=== PATIENT | female | born 1995 | race Caucasian/White ===

== ENCOUNTER 2019-11-27 20:27 | Inpatient (IN) | payer OTHER, SELFPAY ==
[2019-11-27 20:38] VITALS: BP 80/62; PULSE 103; RESP 18; TEMP 36.5; O2SAT 100; BMI 37.8
--- NOTE | 2019-11-27 21:09 | ED_ITS ---
HPI - Abdominal Pain General Chief Complaint: Abdominal Pain Stated Complaint: ABD PAIN Time Seen by Provider: 11/27/19 20:59 Source: patient Mode of arrival: ambulatory Limitations: no limitations History of Present Illness HPI narrative: This is a 24-year-old female without significant past medical history who presents with 2 days of abdominal discomfort. Patient states that it started yesterday morning in the periumbilical area and was associated with nausea but denies any vomiting /fever /chills / urinary symptoms/ diarrhea. She states that it is a sharp pain as well as a lot of pressure that is rated at 6/10 and initially was non-radiating but between yesterday morning and today the pain has settled into her suprapubic area and is now radiating into her lower back. She denies any previous history of surgeries or kidney stones and thinks that it is unlikely that she is although her LMP was last month. She states she and her partner consistently use condoms. Related Data Home Medications Medication Instructions Recorded Confirmed No Known Home Meds 11/28/19 11/28/19 Allergies Allergy/AdvReac Type Severity Reaction Status Date / Time No Known Allergies Allergy Verified 11/27/19 20:41 Review of Systems Review of Systems Pertinent positives and negatives as stated in HPI 10 point review of systems otherwise negative. Physical Exam Vital Signs: Vital Signs: Vital Signs Temp Pulse Resp BP Pulse Ox 11/28/19 00:00 109 H 15 116/63 98 11/27/19 23:04 15 11/27/19 21:59 97.7 F 84 18 124/58 L 100 11/27/19 20:38 97.7 F 103 H 18 80/62 L 100 Body Mass Index 37.8 VITAL SIGNS: Reviewed. GENERAL: Well developed, well nourished, in no acute distress. HEAD: Normocephalic/atraumatic, EYES: PERRLA, EOMI intact without pain, no nystagmus/pallor/icterus noted EARS: Ext canals without abnormality, TMs non-bulging and non-erythematous NOSE: Nares patent bilateral OROPHARYNX: no oral lesions noted, posterior pharynx clear and non-erythematous without noted tonsillar enlargement/erythema/exudates NECK: Supple, no adenopathy LUNGS: Normal breath sounds. No adventitious sounds or accessory muscle use. SpO2<100> CARDIOVASCULAR: Regular rate and rhythm without noted murmurs, no JVD or lower extremity edema. ABDOMEN: Soft, non-tender, non-distended with bowel sounds. No rigidity. No guarding. No palpable masses or hernias noted MUSCULOSKELETAL: No tenderness, deformities, or effusions noted on gross inspection. EXTREMITIES: No cyanosis, clubbing or edema. SKIN: Inspection of the skin reveals no rashes, ulcerations, jaundice, pallor, or petechiae. NEUROLOGIC: Alert and oriented x 4. Strength and sensation to light touch were grossly intact x 4. Course Course Course Narrative: This is a 24-year-old female with history and clinical presentation suggestive of possible acute appendicitis, renal colic, ectopic but doubt pyelonephritis or cystitis at this time. Patient received labs, UA, U preg, blood cultures, lactic acid, antibiotics, and IV fluids. Initial vital signs checked and found to be inaccurate. IBW- 54.8kg. Review of all investigations to include imaging is consistent with acute appendicitis. This case was discussed with the general surgeon and patient will be admitted for acute appendicitis. MDM - Abdominal Pain Lab Data Result diagrams: 11/27/19 21:36 11/27/19 21:36 Labs: Lab Results 11/27/19 11/27/19 11/27/19 Range/Units 21:36 21:36 21:36 WBC 16.6 H (4.8-10.8) X10*3/uL RBC 4.17 L (4.20-5.50) X10*6/uL Hgb 12.5 (12.0-16.0) g/dl Hct 36.2 L (37-47) % MCV 86.8 (80-98) fL MCH 30.0 (27.0-33.0) pg MCHC 34.5 (31.0-35.0) g/dl RDW 12.9 (11.0-16.0) % Plt Count 362 (160-400) X10*3/uL MPV 9.2 L (9.4-12.3) fL Immature Gran % (Auto) 0.4 (0.0-0.4) % Neut % (Auto) 77.7 H (45-73) % Lymph % (Auto) 14.0 L (20-40) % [place] % (Auto) 7.1 (2-11) % Eos % (Auto) 0.4 (0-4) % Baso % (Auto) 0.4 (0-2) % Lymph # (Auto) 2.3 (1.2-4.9) X10*3/uL [place] # (Auto) 1.2 (0.1-1.2) X10*3/uL Eos # (Auto) 0.1 (0.0-0.4) X10*3/uL Baso # (Auto) 0.1 (0.0-0.2) X10*3/uL Abs Immat Gran (auto) 0.07 H (0.00-0.03) X10*3/uL Absolute Neuts (auto) 12.9 H (2.0-8.3) X10*3/uL Absolute Nucleated RBC 0.000 (0.0-0.012) X10*3/uL Nucleated RBC % (auto) 0.0 (0.0-0.2) /100WBC Sodium 139 (135-145) mmol/L Potassium 3.9 (3.3-5.1) mmol/l Chloride 103 (96-108) mmol/L Carbon Dioxide 23 (22-29) mmol/L Anion Gap 17 (12-20) BUN 8 L (9-16) mg/dL Creatinine 0.82 (0.5-1.4) mg/dL Estim Creat Clear Calc 120.4 Estimated GFR > 60 Random Glucose 113 (60-115) mg/dL Lactic Acid (0.5-2.0) mmol/L Calcium 9.1 (8.4-10.2) mg/dL Total Bilirubin 0.6 (0.0-1.0) mg/dL AST 18 (5-31) U/L ALT 18 (0-31) U/L Alkaline Phosphatase 69 (39-117) U/L Total Protein 7.9 (6.5-8.0) g/dL Albumin 4.5 (3.5-5.0) g/dL Urine Color YELLOW Urine Appearance CLEAR Urine pH 6.0 (5.0-8.0) Ur Specific [place] 1.025 (1.005-1.025) Urine Protein NEG (NEG-TRACE) MG/DL Urine Glucose (UA) NEG (NEG) MG/DL Urine Ketones 15 (NEG) MG/DL Urine Blood 2+ H (NEG) Urine Nitrite NEG (NEG) Ur Leukocyte Esterase NEG (NEG) Urine RBC 0-2 (0) /HPF Urine WBC 0 (0-4) /HPF Ur Squamous Epith Cells 1+ /LPF Urine Bacteria TRACE /LPF Urine Test NEGATIVE (NEGATIVE) 11/27/19 Range/Units 21:36 WBC (4.8-10.8) X10*3/uL RBC (4.20-5.50) X10*6/uL Hgb (12.0-16.0) g/dl Hct (37-47) % MCV (80-98) fL MCH (27.0-33.0) pg MCHC (31.0-35.0) g/dl RDW (11.0-16.0) % Plt Count (160-400) X10*3/uL MPV (9.4-12.3) fL Immature Gran % (Auto) (0.0-0.4) % Neut % (Auto) (45-73) % Lymph % (Auto) (20-40) % [place] % (Auto) (2-11) % Eos % (Auto) (0-4) % Baso % (Auto) (0-2) % Lymph # (Auto) (1.2-4.9) X10*3/uL [place] # (Auto) (0.1-1.2) X10*3/uL Eos # (Auto) (0.0-0.4) X10*3/uL Baso # (Auto) (0.0-0.2) X10*3/uL Abs Immat Gran (auto) (0.00-0.03) X10*3/uL Absolute Neuts (auto) (2.0-8.3) X10*3/uL Absolute Nucleated RBC (0.0-0.012) X10*3/uL Nucleated RBC % (auto) (0.0-0.2) /100WBC Sodium (135-145) mmol/L Potassium (3.3-5.1) mmol/l Chloride (96-108) mmol/L Carbon Dioxide (22-29) mmol/L Anion Gap (12-20) BUN (9-16) mg/dL Creatinine (0.5-1.4) mg/dL Estim Creat Clear Calc Estimated GFR Random Glucose (60-115) mg/dL Lactic Acid 1.1 (0.5-2.0) mmol/L Calcium (8.4-10.2) mg/dL Total Bilirubin (0.0-1.0) mg/dL AST (5-31) U/L ALT (0-31) U/L Alkaline Phosphatase (39-117) U/L Total Protein (6.5-8.0) g/dL Albumin (3.5-5.0) g/dL Urine Color Urine Appearance Urine pH (5.0-8.0) Ur Specific [place] (1.005-1.025) Urine Protein (NEG-TRACE) MG/DL Urine Glucose (UA) (NEG) MG/DL Urine Ketones (NEG) MG/DL Urine Blood (NEG) Urine Nitrite (NEG) Ur Leukocyte Esterase (NEG) Urine RBC (0) /HPF Urine WBC (0-4) /HPF Ur Squamous Epith Cells /LPF Urine Bacteria /LPF Urine Test (NEGATIVE) Discharge Plan Discharge Clinical Impression: Acute appendicitis Qualifiers: Acute appendicitis type: unspecified acute appendicitis type Qualified Code(s): K35.80 - Unspecified acute appendicitis Patient Disposition: Admitted As Inpatient [facility] Past Medical History Source: nursing notes reviewed Medical History No known health problems Social History Social History Alcohol intake: unknown Smoking Status: Unknown if ever smoked Use of substances other than those prescribed or required for medical reasons: Unknown Advance Directives: No Advance Directives Information Provided: Yes
[2019-11-27 21:45] LABS: MANUAL DIFF FLAG NO
[2019-11-27 21:46] LABS: Basophils Absolute Auto 0.1 X10*3/uL (0.0-0.2); Basophils Percent Auto 0.4 % (0-2); Eosinophils Absolute Auto 0.1 X10*3/uL (0.0-0.4); Eosinophils Percent Auto 0.4 % (0-4); Hematocrit 36.2 % (37-47); Hemoglobin 12.5 g/dl (12.0-16.0); Imm Gran Abs Auto 0.07 X10*3/uL (0.00-0.03); Imm Gran Pct Auto 0.4 % (0.0-0.4); Lymphocytes Absolute Auto 2.3 X10*3/uL (1.2-4.9); Mean Corpuscular HGB Conc 34.5 g/dl (31.0-35.0); Mean Corpuscular Volume 86.8 fL (80-98); Mean Platelet Volume 9.2 fL (9.4-12.3); Monocytes Absolute Auto 1.2 X10*3/uL (0.1-1.2); Monocytes Percent Auto 7.1 % (2-11); Neutrophils Absolute Auto 12.9 X10*3/uL (2.0-8.3); Neutrophils Percent Auto 77.7 % (45-73); Platelet Count 362 X10*3/uL (160-400); Red Blood Count 4.17 X10*6/uL (4.20-5.50); Red Cell Distribution Width 12.9 % (11.0-16.0); White Blood Count 16.6 X10*3/uL (4.8-10.8)
[2019-11-27 21:48] LABS: Glucose Urine UA NEG (NEG); Leukocyte Esterase Urine NEG (NEG); Nitrite Urine NEG (NEG); Specific Gravity - Urine 1.025 (1.005-1.025); Urine Blood 2+ (NEG); Urine Ketones 15 MG/DL (NEG); Urine Protein NEG (NEG-TRACE)
[2019-11-27 21:49] LABS: Appearance Urine CLEAR; Color Urine YELLOW; UPreg QC Valid YES
[2019-11-27 21:50] LABS: Urine Pregnancy NEGATIVE (NEGATIVE)
[2019-11-27 21:54] LABS: Bacteria Urine TRACE /LPF; RBC Urine 0-2 /HPF (0); Squamous Epithelial Cell Urine 1+ /LPF; WBC Urine 0 /HPF (0-4)
[2019-11-27 21:59] VITALS: BP 124/58; PULSE 84; RESP 18; TEMP 36.5; O2SAT 100
[2019-11-27 22:02] LABS: Lactic Acid 1.1 mmol/L (0.5-2.0)
--- NOTE | 2019-11-27 22:04 | CT_ITS ---
EXAMINATION: CT ABDOMEN AND PELVIS WITH CONTRAST CLINICAL INFORMATION: Lower abdominal pain. COMPARISON: None TECHNIQUE: Multidetector volumetric images were obtained from the superior aspect of the liver through the pubic symphysis following administration 85 mL of Omnipaque 350 intravenous contrast. Sagittal and coronal reformatted images were obtained on the technologist's workstation. Oral Contrast: No. This CT examination was performed using dose optimization techniques as appropriate, variously including the following: *Automated exposure control. *Adjustment of mA and/or kV according to patient size (this includes techniques or standardized protocols for targeted exams where dose is matched to indication/reason for exam; i.e. extremities or head). *Use of iterative reconstruction technique. DLP: 772 mGy-cm FINDINGS: LUNG BASES: The visualized lung bases are unremarkable. LIVER, GALLBLADDER, AND BILIARY TREE: The liver is normal in size, shape, and attenuation. No focal hepatic lesion or biliary ductal dilatation is present. The gallbladder is unremarkable with no evidence of radiopaque gallstones, gallbladder wall thickening, or obvious pericholecystic inflammatory changes. PANCREAS: Unremarkable. SPLEEN: Unremarkable. ADRENAL GLANDS: Unremarkable. KIDNEYS AND URETERS: The kidneys are normal in size, shape, and attenuation. No hydronephrosis, hydroureter, or calculi seen. No perinephric stranding. BLADDER: Unremarkable. GASTROINTESTINAL TRACT: A 0.7 cm appendicolith is noted in the mid appendix. The appendix distal to the appendicolith is thickened with a maximum diameter of 0.9 cm. There is a hyperenhancement of the appendiceal wall. Periappendiceal fat stranding is noted. The appendix arises from the medial margin of the cecum and extends into the central abdomen (series 5 images 50 through 64 of 134).There is no evidence of focal appendiceal perforation or abscess collection. The stranding extends along the anterior aspect of the spine in the retroperitoneum at the level of the aortic bifurcation There is likely mild reactive thickening of the wall of the adjacent small bowel. Remainder of the small bowel, colon and stomach are unremarkable. PERITONEAL SPACE: [id number] amount of free fluid is noted in the pelvis. No free intraperitoneal air. ABDOMINAL WALL: No significant hernia is appreciated. LYMPH NODES: No pathologically enlarged lymph nodes. VASCULAR: Unremarkable. PELVIC VISCERA: Unremarkable CT appearance of the uterus and left ovary. Peripherally enhancing hypodense lesion is noted in the right ovary measuring 2.3 cm likely representing a collapsing corpus luteal or hemorrhagic cyst. Mild fat stranding on the anterior aspect of the uterus is reactive. OSSEOUS STRUCTURES: No acute or suspicious osseous lesions. A small sclerotic density in the left femoral head represents a bone island. IMPRESSION: Findings consistent with acute appendicitis as detailed above with a 0.7 cm appendicolith. No evidence of focal appendiceal perforation or abscess collection. Mild reactive wall thickening of the adjacent small bowel loop. [id number] volume of free fluid in the pelvis. No free intraperitoneal air. This critical result was discussed with Dr. Tori Diaz at 11:17 PM on 11/27/2019 and it was ascertained that the content and urgency of the report was understood at the time of direct communication.
[2019-11-27 22:10] LABS: Alanine Aminotransferase 18 U/L (0-31); Albumin Level 4.5 g/dL (3.5-5.0); Alkaline Phosphatase 69 U/L (39-117); Anion Gap 17 (12-20); Aspartate Amino Transferase 18 U/L (5-31); Bilirubin Total 0.6 mg/dL (0.0-1.0); Blood Urea Nitrogen 8 mg/dL (9-16); Calcium 9.1 mg/dL (8.4-10.2); Carbon Dioxide 23 mmol/L (22-29); Chloride 103 mmol/L (96-108); Creatinine Clr Calc Pharmacy 120.4; Estimated Glomerular Filt Rate > 60; Glucose Random 113 mg/dL (60-115); Potassium 3.9 mmol/l (3.3-5.1); Sodium 139 mmol/L (135-145); Total Protein 7.9 g/dL (6.5-8.0)
[2019-11-27] MEDS: 0.9 % Sodium Chloride 1,000 ML 999 ML IVCONT (22:11)
[2019-11-27] MEDS: iohexoL 350 MG/ML 100 ML INFUS..BTL IV (22:59)
[2019-11-27 23:04] VITALS: RESP 15
[2019-11-27] MEDS: fentaNYL citrate/PF 100 MCG/2 ML VIAL 12.5 MCG IVPUSH (23:04)
[2019-11-28] VITALS (15 sets, daily range): BP systolic 113–132; BP diastolic 54–76; PULSE 68–118; RESP 15–19; TEMP 36.4–39.3; O2SAT 95–99; BMI 36.1
[2019-11-28] MEDS: Piperacillin Sodium/Tazobactam 3.375 GM in 0.9 % Sodium Chloride 50 ML IV ×2 (00:07→05:28)
[2019-11-28] MEDS: fentaNYL citrate/PF 100 MCG/2 ML VIAL 12.5 MCG IVPUSH (01:53)
[2019-11-28 02:34] LABS: SARS COV2 PCR INHOUSE NEGATIVE (Negative)
[2019-11-28] MEDS: 0.9 % Sodium Chloride 1,000 ML 125 ML IVCONT ×3 (03:44→22:10)
[2019-11-28] MEDS: Morphine Sulfate 4 MG/ML CARTRIDGE IVPUSH ×3 (04:28→11:04)
--- NOTE | 2019-11-28 08:52 | MHC.SHP ---
Pre-Procedural Eval Section A The patient is an INPATIENT: Yes The History & Physical has been completed within 30 days and I have reviewed it.: Yes Section B Chief Complaint: ABD PAIN/ACUTE APPENDICITIS Allergies: Allergies Allergy/AdvReac Type Severity Reaction Status Date / Time No Known Allergies Allergy Verified 11/27/19 20:41 Plan Patient has been examined and remains a candidate for the planned procedure
--- NOTE | 2019-11-28 11:39 | MHC.CM.PN ---
TELEHEALTH NURSE EDUCATOR COMPLETED WITH PT WHO REPORTS SHE LIVES AT HOME WITH HER S/O AND IS FULLY INDEPENDENT WITH CARE AND MOBILITY. PT HAS NO SERVICES AND NO DME. PT REPORTS SHE DOES NOT HAVE A PCP OR A HCP. PT COMPLETED A HCP TODAY NAMING HER S/O, DOUGLAS HENRY([phone]) HER PRIMARY AND HER MOTHER, EDWINA COLON ([phone]), HER SECONDARY, AGENTS. CURRENT DC PLAN IS HOME WITH NO SERVICES PT WILL SELF ARRANGE TRANSPORTATION
--- NOTE | 2019-11-28 12:04 | P.HPGS_ITS ---
History of Present Illness History of Present Illness Chief complaint: ABD PAIN/ACUTE APPENDICITIS Narrative: This is a 24-year-old previously healthy female who reports a 2 day history of abdominal pain that was initially periumbilical and then localized to the suprapubic and right lower quadrant yesterday morning. Patient reports when the pain began 2 days ago in the morning it was a 5/10 on a pain scale. The pain progressed over the course of the next day and half to a 9/10 which brought her to the emergency department last evening. Patient's pain is now somewhere between 8 9/10. She had associated nausea but no vomiting. She reports trying Aleve for pain control with slight improvement. There were no exacerbating factors and the only alleviating factor was use of Aleve. Last meal was yesterday around 2 in the afternoon. Last bowel movement was a liquid stool this morning. She reports she had smaller stools over the past couple of days and then reports having episodes of loose stool since last night. She denies recent vomiting. She denies previous episodes of pain of this sort before. Patient was seen in the emergency department and evaluated and found have white blood cell count of 16.6. She had a CT scan of the abdomen and pelvis which showed an appendicolith that was 0.7 cm in the midportion of the appendix with the distal appendix being inflamed dilated and periappendiceal stranding seen. This was consistent with appendicitis. patient was admitted this morning with a diagnosis of acute appendicitis. Review of Systems Review of Systems: Yes all other systems are reviewed and are negative Constitutional: Constitutional: Reports anorexia, Reports difficulty sleeping, Reports fatigue, Denies frequent falls, Denies headache(s), Denies increased appetite and Reports poor appetite Eyes: Eyes: Reports no additional eye complaints and Denies blurry vision ENT: Reports Normal hearing present, Denies bleeding gums, Denies change in voice, Denies dizziness, Denies headache(s), Denies lip swelling, Denies throat swelling and Denies tongue swelling Cardiovascular: Cardiovascular: Reports no additional cardiovascular complaints, Denies diaphoresis, Denies syncope, Denies rapid heart rate, Denies pedal edema, Denies dyspnea, Denies dyspnea on exertion, Denies orthopnea and Denies paroxysmal nocturnal dyspnea Respiratory: Respiratory: Denies chest congestion, Denies cough, Denies dyspnea, Denies dyspnea on exertion and Denies wheezing Gastrointestinal: Gastrointestinal: Reports abdominal pain ( Suprapubic and right lower quadrant), Reports change in bowel habits ( diarrhea), Reports change in stool character, Denies heartburn, Reports loose stools, Reports nausea and Denies vomiting Genitourinary: Genitourinary: Reports no additional female genitourinary complaints, Denies abnormal menses, Denies urinary frequency, Denies difficulty voiding, Denies hot flashes and Denies nipple discharge Musculoskeletal: Musculoskeletal: Denies abnormal gait Integumentary/Breasts: Skin/Breast: Denies breast swelling, Denies swelling, Denies breast pain, Denies breast mass and Denies nipple discharge Neurologic: Reports Normal hearing present, Denies Neuro-related abnormal movements, Denies Abnormal speech present, Denies abnormal gait, Denies confusion, Denies dizziness, Denies syncope, Denies frequent falls and Denies headache(s) Psychiatric: Psychiatric: Denies abnormal sleep pattern, Denies confusion, Denies depression and Denies panic attacks Endocrine: Endocrine: Reports fatigue, Denies flushing, Denies heat intolerance, Denies polyphagia and Denies polydipsia Hematologic/Lymphatic: Hematologic/Lymphatic: Denies easy bleeding, Denies easy bruising and Denies lymphadenopathy Allergic/Immunologic: Allergic/Immunologic: Denies lip swelling, Denies throat swelling, Denies tongue swelling and Denies wheezing PMFSH Past Medical History Medical History No known health problems Family History Family History Mother History of ovarian cancer Father Type 2 diabetes mellitus Paternal Grandmother Lung cancer Brother No problems noted. Brother No problems noted. Brother No problems noted. Surgical History Surgical History (Updated 11/28/19 @ 12:10 by Dafne Lopez MD) No pertinent past surgical history Social History Social History (Updated 11/28/19 @ 12:13 by Dafne Lopez MD) Household Members: Spouse Housing: House Do you presently have visiting nurse or other home services: No Alcohol intake: never Smoking Status: Never smoker Second Hand Smoke Exposure: No Use of substances other than those prescribed or required for medical reasons: No Have you been hit, kicked, punched, or otherwise hurt by someone within the past year? 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 Meds Allergies Allergy/AdvReac Type Severity Reaction Status Date / Time No Known Allergies Allergy Verified 11/28/19 12:13 Home Medications Medication Instructions Recorded Confirmed Type No Known Home Meds 11/28/19 11/28/19 History Physical Exam Vital Signs: Vital Signs: Vital Signs Temp Pulse Resp BP Pulse Ox 11/28/19 07:41 100.9 F H 110 H 18 120/54 L 98 11/28/19 03:38 98.4 F 114 H 16 113/66 99 11/28/19 01:53 15 11/28/19 00:00 109 H 15 116/63 98 11/27/19 23:04 15 11/27/19 21:59 97.7 F 84 18 124/58 L 100 11/27/19 20:38 97.7 F 103 H 18 80/62 L 100 Body Mass Index 36.1 Const: General: cooperative, healthy appearing, comfortable and no acute distress; No confusion Orientation/consciousness: patient oriented x3 and No confusion HENMT: Head: Yes normal to inspection, Yes normocephalic and Yes atraumatic Eyes: General: appearance normal, both eyes and all related structures Sclerae: sclerae normal EOM: EOMs intact bilaterally Neck: Neck: Yes normal visual inspection, Yes full ROM and Yes no lymphadenopathy Chest: Chest palpation & inspection: normal inspection of the chest Resp: Effort & Inspection: normal respiratory effort, able to speak in complete sentences and abnormal respiratory pattern Auscultation: clear to auscultation bilaterally Cardio: Rate: regular rate Heart sounds: S1 normal heart sound present, S2 normal heart sound present, no gallops, no murmurs, no rubs and normal S1 and S2 GI: Inspection: No Abdominal wall edema, No distended, No incision, No Abdominal panniculus present and Yes obesity Palpation (GI): Tenderness to palpation present (GI) in the RLQ and suprapubicly Percussion: Yes normal to percussion Rectal Exam - Female: deferred Skin: General skin exam: no rashes or lesions noted Neuro: General: patient oriented x3 and No confusion Cranial nerves: Yes CN's II-XII intact bilaterally and Yes Normal hearing present Speech: No A bnormal speech present Motor exam (neuro): 5/5 motor strength present throughout Extrem: General: Yes normal to inspection, Yes full ROM, Yes no clubbing, cyanosis or edema, Yes no pedal edema and Yes no calf tenderness Psych: Appearance: grossly normal Mental Status: mental status grossly normal Speech and movement: Normal speech and movement present Affect: normal affect Attitude: cooperative Thought process: Normal thought process present Thought content: Normal thought content present Insight: Good insight present (Psych) Judgement: Good judgement present (Psych) Results Results Labs: Short CBC 11/27/19 Range/Units 21:36 WBC 16.6 H (4.8-10.8) X10*3/uL Hgb 12.5 (12.0-16.0) g/dl Hct 36.2 L (37-47) % Plt Count 362 (160-400) X10*3/uL BMP 11/27/19 21:36 Sodium 139 Potassium 3.9 Chloride 103 Carbon Dioxide 23 BUN 8 L Creatinine 0.82 Calcium 9.1 Liver Function 11/27/19 Range/Units 21:36 Total Bilirubin 0.6 (0.0-1.0) mg/dL AST 18 (5-31) U/L ALT 18 (0-31) U/L Alkaline Phosphatase 69 (39-117) U/L Albumin 4.5 (3.5-5.0) g/dL Urine 11/27/19 Range/Units 21:36 Urine Color YELLOW Urine Appearance CLEAR Urine pH 6.0 (5.0-8.0) Ur Specific [place] 1.025 (1.005-1.025) Urine Protein NEG (NEG-TRACE) MG/DL Urine Glucose (UA) NEG (NEG) MG/DL Urine Test NEGATIVE (NEGATIVE) CT scan - chest: report reviewed ( findings in HPI) Assessment and Plan (1) Acute appendicitis: Qualifiers: Acute appendicitis type: unspecified acute appendicitis type Qualified Code(s): K35.80 - Unspecified acute appendicitis Status: Acute this is a 24-year-old lady with acute appendicitis by history physical exam laboratory values and radiologic studies. She will be taken to the operating room for laparoscopic possible open appendectomy. Risks benefits and alternatives were discussed with the patient and she agrees to proceed.
--- NOTE | 2019-11-28 12:25 | HO.ANESPROP2 ---
[facility] Past Medical History Medical History No known health problems Family History Family History Mother History of ovarian cancer Father Type 2 diabetes mellitus Paternal Grandmother Lung cancer Brother No problems noted. Brother No problems noted. Brother No problems noted. Surgical History Surgical History (Updated 11/28/19 @ 12:10 by Dafne Lopez MD) No pertinent past surgical history Social History Social History (Updated 11/28/19 @ 12:13 by Dafne Lopez MD) Household Members: Spouse Housing: House Do you presently have visiting nurse or other home services: No Alcohol intake: never Smoking Status: Never smoker Second Hand Smoke Exposure: No Use of substances other than those prescribed or required for medical reasons: No Have you been hit, kicked, punched, or otherwise hurt by someone within the past year? 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 Meds Allergies Allergy/AdvReac Type Severity Reaction Status Date / Time No Known Allergies Allergy Verified 11/28/19 12:13 Home Medications Medication Instructions Recorded Confirmed Type No Known Home Meds 11/28/19 11/28/19 History Exam Exam Date and Time: November 28, 2019 1225 Height,Weight and Vital Signs: Height 5 ft 4 in Weight 95.4 kg Last Vital Signs Temp 100.9 F H 11/28/19 07:41 Pulse 110 H 11/28/19 07:41 Resp 18 11/28/19 07:41 BP 120/54 L 11/28/19 07:41 Pulse Ox 98 11/28/19 07:41 Pertinent Lab Results Pertinent Lab Results: Laboratory Tests 11/27/19 11/27/19 11/27/19 21:36 21:36 21:36 WBC 16.6 H RBC 4.17 L Hgb 12.5 Hct 36.2 L MCV 86.8 MCH 30.0 MCHC 34.5 RDW 12.9 Plt Count 362 MPV 9.2 L Immature Gran % (Auto) 0.4 Neut % (Auto) 77.7 H Lymph % (Auto) 14.0 L [place] % (Auto) 7.1 Eos % (Auto) 0.4 Baso % (Auto) 0.4 Lymph # (Auto) 2.3 [place] # (Auto) 1.2 Eos # (Auto) 0.1 Baso # (Auto) 0.1 Abs Immat Gran (auto) 0.07 H Absolute Neuts (auto) 12.9 H Absolute Nucleated RBC 0.000 Nucleated RBC % (auto) 0.0 Sodium 139 Potassium 3.9 Chloride 103 Carbon Dioxide 23 Anion Gap 17 BUN 8 L Creatinine 0.82 Estim Creat Clear Calc 120.4 Estimated GFR > 60 Random Glucose 113 Lactic Acid Calcium 9.1 Total Bilirubin 0.6 AST 18 ALT 18 Alkaline Phosphatase 69 Total Protein 7.9 Albumin 4.5 Urine Color YELLOW Urine Appearance CLEAR Urine pH 6.0 Ur Specific [place] 1.025 Urine Protein NEG Urine Glucose (UA) NEG Urine Ketones 15 Urine Blood 2+ H Urine Nitrite NEG Ur Leukocyte Esterase NEG Urine RBC 0-2 Urine WBC 0 Ur Squamous Epith Cells 1+ Urine Bacteria TRACE Urine Test NEGATIVE Coronavirus (PCR) 11/27/19 11/28/19 21:36 01:30 WBC RBC Hgb Hct MCV MCH MCHC RDW Plt Count MPV Immature Gran % (Auto) Neut % (Auto) Lymph % (Auto) [place] % (Auto) Eos % (Auto) Baso % (Auto) Lymph # (Auto) [place] # (Auto) Eos # (Auto) Baso # (Auto) Abs Immat Gran (auto) Absolute Neuts (auto) Absolute Nucleated RBC Nucleated RBC % (auto) Sodium Potassium Chloride Carbon Dioxide Anion Gap BUN Creatinine Estim Creat Clear Calc Estimated GFR Random Glucose Lactic Acid 1.1 Calcium Total Bilirubin AST ALT Alkaline Phosphatase Total Protein Albumin Urine Color Urine Appearance Urine pH Ur Specific [place] Urine Protein Urine Glucose (UA) Urine Ketones Urine Blood Urine Nitrite Ur Leukocyte Esterase Urine RBC Urine WBC Ur Squamous Epith Cells Urine Bacteria Urine Test Coronavirus (PCR) NEGATIVE Airway Mallampati Class: II TM Dist: >3cm Neck ROM: Full Loose/Missing/Broken Teeth: No Heart: RRR Lungs: CTA Assessment and Plan Assessment Anesthesia Assessment: Anesthesia Plan Discussed and Chart Reviewed Final Anesthetic Review NPO: Yes ASA Class: I Final Preanesthetic Review: No Changes in Pt Med Stat, Meds/Allgs Chart Reviewed, Consent Obtained/Reviewed and Anes Risks/Benef Reviewed Patient Risk: Low Procedure Risk: Intermediate Anesthetic Plan Anesthetic Plan: GA Disposition: Standard PACU
[2019-11-28] MEDS: Acetaminophen 325 MG TABLET 650 MG PO (13:05)
--- NOTE | 2019-11-28 14:31 | P.BOP_ITS ---
Brief Operative Note Date of procedure: 11/28/19 Pre-op diagnosis: Acute appendicitis Post-op diagnosis: same Procedure: laparoscopic appendectomy Surgeon: Dafne Lopez MD Anesthesia: GETA Funeral Greeter: Blanca Chacon Estimated blood loss (mL): 10 Pathology: other ( appendix) Condition: stable Disposition: PACU
--- NOTE | 2019-11-28 14:32 | W.PM.OPN ---
Operative Note Operative Note Narrative: Patient was brought into the operating room, placed on operating room table in a supine position. General anesthesia was induced. The patient received 2 g of IV cefotetan preoperatively. Normal DVT prophylaxis was instituted. Safety time-out was performed. The abdomen was prepped and draped in normal sterile fashion using ChloraPrep. Next a mixture of 1% lidocaine with epinephrine 0.25% Marcaine plain was used to anesthetize the planned incision site in the infraumbilical position. A number 11 scalpel used to make a 2 cm infraumbilical transverse surgical incision through which the subcutaneous tissues were dissected down to the level of the fascia. The fascia was grasped between 2 Nathalia clamps and entered for about 1 cm. A 11. Scalpel used to cut the fascia. A 0 Vicryl suture was placed on either side of the opened fascia. A finger was used to bluntly gain access to the intra-abdominal cavity. A 12 mm Ordoñez trocar was introduced into the abdomen and secured to the abdominal wall using sutures on the fascia. The abdominal cavity was insufflated to 15 mm of mercury. A 5 mm 30 degree laparoscopic was introduced abdomen and used to survey the abdominal cavity which was relatively normal. Two additional 5 mm ports were placed under direct vision, 1 in the suprapubic region and 1 in the left lower quadrant under direct vision. The patient was placed in Trendelenburg positioning with the left side tilted down. We visualized the cecum in the right lower quadrant as well as the appendix which was retrocecal and in the pelvis anterior to the uterine fundus. There was fibrinous exudate and cloudy serous fluid in the pelvis. We grasped the appendix and dissected it free from the surrounding tissues. We used the LigaSure device to dissect the mesoappendix down at the base of the appendix. We then used a 45 mm sheppard load stapler to staple across the base of the appendix. We placed the appendix in an Endo-Catch bag and removed from the abdomen. We evaluated staple line at the cecum and it was in good condition there was evidence of any bleeding. We irrigated the pelvis until the effluent was clear and suctioned all of the fluid from the pelvis. There was no injury to any of the viscera. We then removed the 5 mm ports from the suprapubic region and the left lower quadrant under direct vision. There was no bleeding from these port sites. We desufflated the abdomen under direct vision and removed the last port and laparoscope. We reapproximated the fascial defect at the umbilicus using a [id number] 0 Vicryl suture and tied the original fascial sutures over that closure. There was no residual fascial defect. We reapproximated all skin incisions with a 4 0 Monocryl subcuticular stitch. We cleaned and dried the skin and applied Dermabond skin glue to all skin incisions. All counts were correct at the end of the case there were no complications. The patient was awakened in stable condition prior to extubation and transferred to recovery room.
[2019-11-28] MEDS: Ketorolac Tromethamine 30 MG/ML VIAL IVPUSH (16:02)
[2019-11-28] MEDS: oxyCODONE HCl Immed Release 5 MG TABLET PO (16:14)
[2019-11-28] MEDS: 0.9 % Sodium Chloride Flush 3 ML SYRINGE IVFLUSH ×2 (17:20→23:49)
[2019-11-29] MEDS: oxyCODONE HCl Immed Release 5 MG TABLET PO (03:54)
[2019-11-29 04:00] VITALS: BP 111/65; PULSE 87; RESP 18; TEMP 35.9; O2SAT 100
[2019-11-29 06:00] VITALS: TEMP 36.5
[2019-11-29] MEDS: 0.9 % Sodium Chloride 1,000 ML 125 ML IVCONT (06:15)
[2019-11-29 08:00] VITALS: BP 118/66; PULSE 83; RESP 18; TEMP 36.6; O2SAT 99
[2019-11-29] MEDS: 0.9 % Sodium Chloride Flush 3 ML SYRINGE IVFLUSH (09:07)
--- NOTE | 2019-11-29 09:28 | MHC.CM.PN ---
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
--- NOTE | 2019-11-29 09:33 | PM.PNGS ---
Subjective Subjective Interval history: pod 1 s/p lap appendectomy feeling much better. No nausea or vomiting. Tolerating regular diet. Vital signs are normal Physical Exam Vital Signs: Vital Signs: Vital Signs Temp Pulse Resp BP Pulse Ox 11/29/19 08:00 97.9 F 83 18 118/66 99 11/29/19 06:00 97.7 F 11/29/19 04:00 96.6 F L 87 18 111/65 100 11/28/19 23:24 97.5 F 68 16 116/60 97 11/28/19 19:03 98 F 86 18 114/61 99 11/28/19 16:44 98.3 F 101 H 18 131/65 98 11/28/19 16:32 98.7 F 104 H 18 118/66 98 11/28/19 16:20 106 H 18 119/76 97 11/28/19 16:04 107 H 18 125/68 97 11/28/19 15:59 108 H 18 118/68 97 11/28/19 15:53 107 H 18 120/61 96 11/28/19 15:48 98.7 F 108 H 18 122/62 95 11/28/19 14:19 100.8 F H 11/28/19 12:00 102.7 F H 118 H 19 132/60 98 Body Mass Index 36.1 Const: General: cooperative, healthy appearing, comfortable and no acute distress Orientation/consciousness: patient oriented x3 GI: Other: obese, soft, mild appropriate incisional tenderess. Dermabond in place Neuro: General: patient oriented x3 Extrem: General: Yes no pedal edema and Yes no calf tenderness Progress Note: A&P Assessment and plan (1) S/P laparoscopic appendectomy: Status: Acute Assessment and Plan: pod 1 s/p lap appendectomy doing well. Will d/c home today Fall Risk Details Current Medications: Current Medications Generic Name Dose Route Start Last Admin Trade Name Freq PRN Reason Stop Dose Admin Acetaminophen 650 mg 11/28/19 01:36 11/28/19 13:05 Acetaminophen 325 Mg Tablet PO 650 mg Q6H PRN Administration FEVER/MILD PAIN Diphenhydramine HCl 25 mg 11/28/19 01:47 Diphenhydramine Hcl 25 Mg Tablet PO Q4H PRN ALLERGIC REACTION Diphenhydramine HCl 25 mg 11/28/19 16:45 Diphenhydramine Hcl 25 Mg Tablet PO Q4H PRN Itching Sodium Chloride 1,000 mls @ 125 mls/hr 11/28/19 02:15 11/29/19 06:15 Ns IVCONT 125 mls/hr .Q8H MISAEL Administration Morphine Sulfate 2 mg 11/28/19 01:32 Morphine Sulfate 2 Mg/Ml Cartridge IVPUSH Q3H PRN PAIN 3-6 Morphine Sulfate 4 mg 11/28/19 01:34 11/28/19 11:04 Morphine Sulfate 4 Mg/Ml Cartridge IVPUSH 4 mg Q3H PRN Administration PAIN 7-10 Ondansetron HCl 4 mg 11/28/19 01:35 Ondansetron Hcl 4 Mg/2 Ml Vial IVPUSH Q4H PRN Nausea Oxycodone HCl 5 mg 11/28/19 16:45 11/29/19 03:54 Oxycodone Hcl Immed Release 5 Mg Tablet PO 5 mg Q3H PRN Administration Pain, Moderate (Pain Scale 4-6 Oxycodone HCl 10 mg 11/28/19 16:45 Oxycodone Hcl Immed Release 5 Mg Tablet PO Q3H PRN Pain, Severe (Pain Scale 7-10) Sodium Chloride 3 ml 11/28/19 08:00 11/29/19 09:07 0.9 % Sodium Chloride Flush 3 Ml Syringe IVFLUSH 3 ml QSHIFT MISAEL Administration Time Spent With Patient Time: Total time spent is greater than 50% in coordination of care (as documented) at patient's floor/unit and/or counseling patient: Time with patient: less than 15 minutes
--- NOTE | 2019-11-29 09:41 | MHC.CM.PN ---
PT IS D/C HOME WITH NO SERVICES NECESSARY. LIVES WITH S.O.
--- NOTE | 2019-11-29 14:09 | HO.POSTANES ---
Post Anesthesia Evaluation Post Anesthesia Evaluation Vital Signs: Vital Signs Temp Pulse Resp BP Pulse Ox 11/29/19 08:00 97.9 F 83 18 118/66 99 11/29/19 06:00 97.7 F 11/29/19 04:00 96.6 F L 87 18 111/65 100 Anesthesia: General Mental Status: Awake Pain Control: Satisfactory Nausea/Vomiting: None Hydration: Adequate Anesthesia-Related Issues: No Anes. Related Issues
--- NOTE | 2019-11-30 11:20 | DS_ITS ---
ADMITTING DIAGNOSIS: Acute appendicitis. DISCHARGE DIAGNOSIS: Acute appendicitis. PROCEDURE PERFORMED: Laparoscopic appendectomy. DISCHARGE DISPOSITION: Home. DISCHARGE CONDITION: Good. DISCHARGE INSTRUCTIONS: The patient should avoid all heavy lifting greater than 5 to 10 pounds for the next 4 weeks. She should call the office with any questions or concerns such as increasing abdominal pain, persistent nausea and vomiting, redness or drainage from her incisions, fever, chills, shortness of breath, chest pain, leg pain, or swelling. The patient should follow up with Dr. Lopez in 2 weeks following discharge, to call the office at [phone]. HOSPITAL COURSE: The patient was admitted through the emergency department with a diagnosis of acute appendicitis by physical exam, history, and radiologic studies. She was then taken to the operating room urgently for a laparoscopic appendectomy, which was uneventful. The patient was sent back to the surgical floor, where she tolerated a regular diet, was up and ambulating, using incentive spirometer. The patient had no change in vital signs and had normal vital signs following appendectomy. She had had a fever prior to surgery, but after surgery had no additional tachycardia or temperatures. The patient tolerated a regular diet well and was discharged home without difficulty. DISCHARGE MEDICATIONS: Oxycodone 5 mg 1 or 2 tabs every 4 to 6 hours as needed for pain and Colace 100 mg p.o. b.i.d. The patient was also told to take Tylenol Extra Strength 2 tablets every 6 hours as needed for pain and to use milk of magnesia as needed if she does not have a bowel movement in the next 2 days. MD EDITH Shipley/[place] / [id number]
== END 2019-11-29 10:15 | disposition home or self-care (01) | DRG 234 ==
LOC: HO.ED 23:31 → HO.S3 11-28 02:59
PROVIDERS: Admitting Provider Surgery; Emergency Provider Student in an Organized Health Care Education/Training Program; Visit Provider Surgery
PROC: 0DTJ4ZZ Resection of Appendix, Percutaneous Endoscopic Approach (ICD-10-PCS; CPT 44970; principal; 2019-11-28 13:00)
DX: K35.80 Unspecified acute appendicitis (principal); Z20.828 Contact with and (suspected) exposure to other viral communicable diseases
CPT/HCPCS: 44970; 36415; 74177; 80053; 81001; 81025; 83605; 85025; 87040; 87635; 88304; 96361; 96365; 96375; 99285; J1100; J1885; J2270; J2405; J3010

== ENCOUNTER → 2019-12-13 11:22 | Outpatient (BNVA) | payer OTHER, SELFPAY | PROVIDERS: Visit Provider Surgery | DX: Z76.89 Persons encountering health services in other specified circumstances (principal) ==

== ENCOUNTER 2020-10-14 15:21 | Emergency (ER) | payer OTHER, SELFPAY ==
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
[2020-10-14 16:22] VITALS: BP 146/84; PULSE 89; RESP 16; TEMP 36.9; O2SAT 100; BMI 36.0
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
[2020-10-14 18:01] VITALS: BP 119/68; PULSE 79; RESP 16; O2SAT 99
== END 2020-10-14 20:28 | disposition home or self-care (01) ==
PROVIDERS: Emergency Provider Internal Medicine
DX: S06.0X0A Concussion without loss of consciousness, initial encounter (principal); S86.911A Strain of unspecified muscle(s) and tendon(s) at lower leg level, right leg, initial encounter; V43.52XA Car driver injured in collision with other type car in traffic accident, initial encounter; Y93.89 Activity, other specified; Y92.414 Local residential or business street as the place of occurrence of the external cause; Y99.9 Unspecified external cause status
CPT/HCPCS: 70450; 72125; 73564; 99284